=== PATIENT | male | born 1980 | race Caucasian/White ===

== ENCOUNTER 2024-01-01 06:18 | Observation (INO) | payer BC ==
[2023-12-28 12:33] VITALS: BMI 29.3
[2024-01-01] MEDS ORDERED: Thrombin 5000 UNITS/5 ML VIAL ONE (06:38)
[2024-01-01] MEDS ORDERED: Vancomycin 1 GM VIAL ONE (06:38)
[2024-01-01] MEDS ORDERED: fentaNYL PF 100 MCG/2 ML SYRINGE ONE ×2 (07:06→08:12)
[2024-01-01] MEDS ORDERED: PROPOFOL 20 ML ONE (07:07)
[2024-01-01] MEDS ORDERED: Midazolam HCl 2 mg/2 ml Vial ONE ×2 (07:07→07:16)
[2024-01-01] MEDS ORDERED: Lidocaine 1% PF 5 ML VIAL ONE (07:12)
[2024-01-01] MEDS ORDERED: Rocuronium Bromide 10 MG/ML (10ML VIAL) ONE (07:12)
[2024-01-01] MEDS ORDERED: Ketorolac Tromethamine 30 MG (1 mL) VIAL ONE (07:12)
[2024-01-01] MEDS ORDERED: Dexamethasone 4 mg/ml Vial ONE (07:12)
[2024-01-01] MEDS ORDERED: Ondansetron PF 4 MG/2 ML Vial ONE (07:12)
[2024-01-01] MEDS ORDERED: Sodium Chloride 0.9% 100 ML ONE (07:17)
[2024-01-01] MEDS ORDERED: CEFAZOLIN 2 GM VIAL ONE (07:17)
[2024-01-01] MEDS ORDERED: SUGAMMADEX SODIUM 200 MG/2 ML VIAL ONE (09:28)
[2024-01-01] MEDS ORDERED: Acetaminophen 325 MG TAB PO PRN (10:05)
[2024-01-01] MEDS ORDERED: Ondansetron PF 4 MG/2 ML Vial IVP PRN (10:05)
[2024-01-01] MEDS ORDERED: Acetaminophen/Codeine 30-300mg Tablet PO PRN (10:05)
[2024-01-01] MEDS ORDERED: HYDROcodone/Acetaminophen 7.5/325 mg Tablet PO PRN (10:05)
[2024-01-01] MEDS ORDERED: Milk Of Magnesia 30 ML UDCUP PO PRN (10:05)
[2024-01-01] MEDS ORDERED: diphenhydrAMINE 25 MG CAP PO PRN (10:05)
[2024-01-01] MEDS ORDERED: Morphine 2 MG/ML VIAL SLOW IVP PRN (10:05)
[2024-01-01] MEDS ORDERED: hydrALAZINE 20 MG/ML VIAL SLOW IVP PRN (10:13)
[2024-01-01] MEDS ORDERED: fentaNYL 50 mcg/mL 1 mL Vial ONE ×3 (10:28→11:17)
[2024-01-01] MEDS ORDERED: HYDROmorphone 0.5 MG/0.5 ML SYRINGE ONE ×2 (11:44→12:37)
[2024-01-01] MEDS: Sodium Chloride 0.9% 1,000 ML IV SCH (14:28)
[2024-01-01] MEDS: CEFAZOLIN 2 GM in Sodium Chloride 0.9% 100 ML IVPB SCH (14:28)
[2024-01-01] MEDS: tiZANidine HCl 4 MG TAB PO PRN (14:29)
[2024-01-01] MEDS: traMADol HCl 50 MG TAB PO PRN (21:55)
[2024-01-02] MEDS ORDERED: Non-Formulary Item 1 EACH (Dapagliflozin Propanediol [Farxiga] 10 MG Tablet) PO SCH (09:00)
[2024-01-02] MEDS ORDERED: FOLIC PO SCH (09:00)
[2024-01-02] MEDS ORDERED: [UNRECOGNIZED DRUG - OTHER] PO SCH (09:00)
[2024-01-02] MEDS ORDERED: MULTIVIT MINS PO SCH (09:00)
[2024-01-02] MEDS ORDERED: Non-Formulary Item 1 EACH (Losartan Potassium [Losartan Potassium] 100 MG Tablet) PO SCH ×2 (09:00)
[2024-01-02] MEDS ORDERED: LYCOP PO SCH (09:00)
[2024-01-02] MEDS ORDERED: Cetirizine HCl 10 MG TAB PO SCH (09:00)
[2024-01-02] MEDS ORDERED: IRON PO SCH (09:00)
[2024-01-02] MEDS: Losartan 25 MG TAB PO SCH (09:09)
[2024-01-02] MEDS: Multivitamin W/ Minerals 1 TAB PO SCH (09:09)
[2024-01-02] MEDS: Empagliflozin 25 MG TAB PO SCH (09:10)
[2024-01-02] MEDS: Loratadine 10 MG TAB PO SCH (09:10)
[2024-01-02 12:28] VITALS: BP 110/74; TEMP 97.8
== END 2024-01-02 14:50 | disposition home or self-care (01) ==
LOC: SDC 06:18 → SJJU 10:05
PROVIDERS: ADMIT Surgery; ATTEND Surgery
PROC: 01NB0ZZ Release Lumbar Nerve, Open Approach (ICD-10-PCS; principal; 2024-01-02)
PROC: 0ST20ZZ Resection of Lumbar Vertebral Disc, Open Approach (ICD-10-PCS; 2024-01-02)
DX: M51.16 Intervertebral disc disorders with radiculopathy, lumbar region (principal)
CPT/HCPCS: J1100; J1170; J1885; J2250; J2405; J2704; J3010; J3370; J3490; J7050

== ENCOUNTER 2025-03-20 07:57 | Outpatient (CLI) | payer BC | END 2025-03-20 07:58 | disposition home or self-care (01) | LOC: ULT 07:57 | PROVIDERS: ATTEND Internal Medicine Nephrology | DX: N28.1 Cyst of kidney, acquired (principal) | CPT/HCPCS: 76770 ==